=== PATIENT | male | born 1970 | race Caucasian/White ===

== ENCOUNTER 2020-01-30 08:19 | Emergency (ER) | payer OTHER, SELFPAY ==
--- NOTE | ~2020-01-30 | XR_ITS ---
EXAMINATION: XR chest 1V portable INDICATION: Shortness of breath, COVID 19 exposure TECHNIQUE: Portable AP chest at 0850 hours COMPARISON: None available FINDINGS: There are minimal patchy bilateral airspace opacities. In addition, subtle nodular opacitie s are questioned in the left midlung zone and right upper lung zone. No pleural effusion or pneumotho rax is identified. The cardiomediastinal silhouette is normal. IMPRESSION: 1. Patchy bilateral airspace opacities and questionable nodules of the right upper and left midlung z ones. Findings could be infectious or inflammatory however, further evaluation with CT of the chest i s recommended. Reviewed, dictated and finalized at location A. IMPRESSION: 1. Patchy bilateral airspace opacities and questionable nodules of the right up per and left midlung zones. Findings could be infectious or inflammatory howeve r, further evaluation with CT of the chest is recommended.
[2020-01-30 08:23] VITALS: BP 140/85; PULSE 105; RESP 21; TEMP 37; O2SAT 96
[2020-01-30 08:26] VITALS: PULSE 105
--- NOTE | 2020-01-30 08:27 | ECG_ITS ---
Measurements Intervals [place] Rate: 97 P: 23 VA: 125 QRS: 34 QRSD: 106 T: 3 QT: 336 QTc: 428 Interpretive Statements SINUS RHYTHM BASELINE ARTIFACT- I, II, III, AVR, AVL, AVF NORMAL ECG Electronically Signed On 01-30-2020 9:03:02 CDT by Hola Pierre D.O.
[2020-01-30 08:28] VITALS: O2SAT 95
--- NOTE | 2020-01-30 08:33 | ED.SOB ---
HPI - SOB/Dyspnea General Chief Complaint: Shortness of Breath/Dyspnea Stated Complaint: covid exposure/sob Time Seen by Provider: 01/30/20 08:32 Source: patient Mode of arrival: ambulatory Limitations: no limitations History of Present Illness HPI Narrative: Patient is a 49-year-old male with a history of asthma who presents for evaluation of cough and shortness of breath. 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 Patient continues to have weight loss, fatigue, myalgias and has developed some cough and shortness of breath. He is also reporting chest pain over the center of his chest which has been present for a week. Patient has not noticed any worsening of his asthma or increased wheezing. Patient denies any current fever, chills. He has been able to tolerate some oral intake without vomiting. He denies abdominal pain or diarrhea. He reports he is having mild pain over his chest. Related Data Allergies Allergy/AdvReac Type Severity Reaction Status Date / Time No Known Allergies Allergy Verified 01/30/20 08:26 Review of Systems Review of Systems: Narrative: CONSTITUTIONAL: Reports subjective fever and chills, none currently EYES: Denies visual changes, redness, or discharge. ENT: Denies rhinorrhea, congestion, sore throat, or otalgia. CARDIOVASCULAR: Reports chest pain, denies palpitations RESPIRATORY: Reports cough and shortness of breath. GASTROINTESTINAL: Denies abdominal pain, nausea, vomiting, or diarrhea. GENITOURINARY: Denies dysuria or hematuria. SKIN: Denies rash or itching. MUSCULOSKELETAL: Denies back pain, reports joint pain and myalgias NEUROLOGIC: Denies headache, numbness, or weakness. PSYCHIATRIC: Denies anxiety or depression. 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 EYES: PERRLA and EOMI. ENT: Nares clear, no rhinorrhea or epistaxis. Mucous membranes moist. NECK: Supple. CHEST: No respiratory distress, breathing even and non labored HEART: Regular rate, sinus rhythm ABDOMEN:Non distended, non tender EXTREMITIES: Normal range of motion. No edema. SKIN: Warm, dry, no rash. NEURO:No focal deficits. Alert and oriented x3 Course Vital Signs Vital signs: Vital Signs Temperature 37.0 C 01/30/20 08:23 Pulse Rate 105 H 01/30/20 08:23 Respiratory Rate 21 H 01/30/20 08:23 Blood Pressure 140/85 01/30/20 08:23 Pulse Oximetry 96 01/30/20 08:23 Temperature 37.0 C 01/30/20 08:23 Pulse Rate 98 01/30/20 08:54 Respiratory Rate 17 01/30/20 08:54 Blood Pressure 115/87 01/30/20 08:54 Pulse Oximetry 96 01/30/20 08:54 MDM - SOB/Dyspnea MDM Narrative Medical decision making narrative: Pt presented for evaluation of shortness of breath in the setting of recently confirmed COVID diagnosis. Patient does not appear to be having an acute asthma exacerbation. Laboratory results are reassuring. No elevation in troponin. No pleuritic pain or hypoxemia to suggest PE. Advised patient continue supportive care with Tylenol, ibuprofen, will also prescribe Ventolin inhaler for the patient. I advised patient to continue MDI treatments and follow-up with his primary care physician. I explained that at this point we can also put him on azithromycin as perhaps we are treating an atypical pneumonia but otherwise COVID is a viral diagnosis and antibiotics do not typically have a role here. Patient advised to get an at home pulse
[2020-01-30 08:44] LABS: Basophils Percent Auto 0.2 % (0.2-1.2); Eosinophils Percent Auto 0.4 % (0-4.4); Hematocrit 47.6 % (42.0-52.0); Hemoglobin 15.6 g/dL (14.0-18.0); Immature Granulocyte Absolute 0.03 K/mm3 (0.00-0.031); Immature Granulocyte Percent A 0.6 % (0-0.5); Lymphocytes Absolute Auto 0.88 K/mm3 (0.9-3.2); Lymphocytes Percent Auto 16.7 % (18.3-44.2); Mean Corpuscular HGB Conc 32.8 g/dl (32-36); Mean Corpuscular Hemoglobin 26.7 pg (26-34); Mean Corpuscular Volume 81.4 fl (80-100); Mean Platelet Volume 10.9 fl (7.4-10.4); Monocytes Absolute Auto 0.5 K/mm3 (0.1-0.6); Monocytes Percent Auto 9.3 % (2.6-8.5); Neutrophils Absolute Auto 3.8 K/mm3 (1.3-6.7); Neutrophils Percent Auto 72.8 % (45.5-73.1); Platelet Count Result 172 k/mm3 (150-375); Red Blood Count 5.85 M/mm3 (4.6-6.20); Red Cell Distribution Width 16.7 % (11.5-14.5); White Blood Count 5.3 K/mm3 (4.5-10.0)
[2020-01-30 08:54] VITALS: BP 115/87; PULSE 98; RESP 17; O2SAT 96
[2020-01-30 08:55] LABS: Anion Gap 11 mmol/L (8-16); Blood Urea Nitrogen 14 mg/dL (9-20); Calcium 8.2 mg/dL (8.4-10.2); Carbon Dioxide 28 mmol/L (22-30); Chloride 97 mmol/L (98-107); Estimated CRCL calculation 70 ml/min; Estimated Glomerular Filt Rate 59; Glucose 136 mg/dL (75-110); Potassium 3.8 mmol/L (3.4-5.0); Sodium 136 mmol/L (137-145)
[2020-01-30 09:26] LABS: INR 1.1; Prothrombin Time 14.1 Seconds (11.1-14.7)
[2020-01-30 09:27] LABS: Partial Thromboplastin Time 30.3 SECONDS (22.3-36.8)
[2020-01-30 09:37] LABS: Troponin I < 0.012 ng/mL (0.000-0.034)
[2020-01-30 09:51] VITALS: BP 122/81; PULSE 97; RESP 13; O2SAT 98
== END 2020-01-30 10:04 | disposition home or self-care (01) ==
PROVIDERS: Emergency Provider Emergency Medicine; PCP Internal Medicine
DX: U07.1 COVID-19 (principal); R91.8 Other nonspecific abnormal finding of lung field
CPT/HCPCS: 36415; 71045; 80048; 84484; 85025; 85610; 85730; 93005; 99284

== ENCOUNTER 2022-01-27 10:25 | Emergency (ER) | payer OTHER, SELFPAY ==
--- NOTE | 2022-01-27 10:27 | ED.URI ---
HPI - URI/Sore Throat General Chief Complaint: Upper Respiratory Infection Stated Complaint: upper respiratory Time Seen by Provider: 01/27/22 10:27 Source: patient Mode of arrival: ambulatory Limitations: no limitations History of Present Illness HPI Narrative: Mr. Lanza is a 51-year-old male patient presenting to the clinic today with complaints of cough and chest congestion x10 days. He reports that this started up as her upper respiratory infection has gone down to his chest. He has a history of asthma and feels as though he is wheezing and having an asthma attack. He denies any shortness of breath currently. He denies any fever or chills. States he has a productive cough with some white clear phlegm MD elicited complaint: sore throat and nasal congestion Related Data Home Medications Medication Instructions Recorded Confirmed amlodipine 10 mg tablet 10 mg PO DAILY 01/27/22 01/27/22 liothyronine 5 mcg tablet 5 mcg PO BID 01/27/22 01/27/22 tadalafil 5 mg tablet 5 mg PO DAILY 01/27/22 01/27/22 tamsulosin 0.4 mg capsule 0.4 mg PO DAILY 01/27/22 01/27/22 trazodone 150 mg tablet 150 mg PO HS 01/27/22 01/27/22 Allergies Allergy/AdvReac Type Severity Reaction Status Date / Time No Known Allergies Allergy Verified 01/27/22 10:38 Review of Systems Review of Systems: Pertinent positives per HPI. Patient denies any fever, chills, rash, headache, visual changes, dizziness, shortness of breath, chest pain, palpitations, nausea, vomiting, diarrhea, constipation, abdominal pain, or any urinary issues. 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 There is no relevant family history pertinent to the patient complaint. Exam Narrative: General: Well-developed, well nourished, in no apparent distress Head: Normocephalic, atraumatic Eyes: Pupils equally round and reactive to light bilaterally, EOM intact, sclera and conjunctive clear, no discharge, lids normal Ears: TMs intact and clear, ear canals clear, no drainage, grossly hearing normal. Nose: Nares patent, clear nasal discharge, no inflammation, no sinus tenderness. Mouth: Oral pharynx without lesions or masses, good dentition, MMM. Neck: Supple, trachea midline, no enlargement of anterior or posterior cervical nodes, no thyroid masses or goiter palpable. Cardio: Regular rate and rhythm, s1 and s2 normal, no murmur appreciated. Resp: Posterior expiratory wheezing, no rhonchi, rales, or rubs Course Course Emergency Course: Portions of this record may have been created with voice recognition software. Level of Care: Express Care Visit Vital Signs Vital signs: Vital signs reviewed MDM - URI/Sore Throat MDM Narrative Medical decision making narrative: At the time of visit patient is resting comfortably on the exam table. I suspect the patient has an asthma exacerbation. I will send in a course of prednisone and a Flovent inhaler for him. Supportive measures were discussed with the patient he voiced understanding of discharge instructions. Differential Diagnosis Differential diagnosis: Likely upper respiratory infection, otitis media, sinusitis, viral infection, bronchitis, influenza, pharyngitis and other (Asthma exacerbation) Discharge Plan Discharge Clinical Impression: Asthma exacerbation Qualifiers: Asthma severity: moderate Asthma persistence: persistent Qualified Code(s): J45.41 - Moderate persistent asthma with (acute) exacerbation Patient Disposition: Home, Self-Care Condition: Stable I
[2022-01-27 10:31] VITALS: BP 155/87; PULSE 84; RESP 14; TEMP 36.8; O2SAT 99
[2022-01-27 10:40] VITALS: BP 155/87; PULSE 84; RESP 14; TEMP 36.8; O2SAT 99
== END 2022-01-27 10:46 | disposition home or self-care (01) ==
LOC: EXPBETH 10:29
PROVIDERS: Emergency Provider Nurse Practitioner Family; PCP Internal Medicine
DX: J45.41 Moderate persistent asthma with (acute) exacerbation (principal)
CPT/HCPCS: 99213; G0463

== ENCOUNTER 2023-02-14 18:26 | Emergency (ER) | payer OTHER, SELFPAY ==
--- NOTE | 2023-02-14 18:31 | ED.URI ---
HPI - URI/Sore Throat General Chief Complaint: Upper Respiratory Infection Stated Complaint: Congestion,Cough Time Seen by Provider: 02/14/23 18:35 Source: patient and RN notes reviewed Mode of arrival: ambulatory Limitations: no limitations History of Present Illness HPI Narrative: 52-year-old male with history of asthma presents with concern for chest congestion, cough, shortness of breath with exertion. He denies nasal congestion, rhinorrhea, sore throat, fever, aches, chills, sweats. Reports cough is dry. Reports he had taken [id number] cough medicine without relief. He last used his inhaler an hour ago, he has been using it about 3 to 4 times a day MD elicited complaint: cough Related Data Home Medications Medication Instructions Recorded Confirmed amlodipine 10 mg tablet 10 mg PO DAILY 01/27/22 02/14/23 liothyronine 5 mcg tablet 5 mcg PO BID 01/27/22 02/14/23 tadalafil 5 mg tablet 5 mg PO DAILY 01/27/22 02/14/23 tamsulosin 0.4 mg capsule 0.4 mg PO DAILY 01/27/22 02/14/23 trazodone 150 mg tablet 150 mg PO HS 01/27/22 02/14/23 omeprazole 40 mg capsule,delayed 40 mg PO DAILY 02/14/23 02/14/23 release Allergies Allergy/AdvReac Type Severity Reaction Status Date / Time No Known Allergies Allergy Verified 02/14/23 18:29 Review of Systems Review of Systems: CONSTITUTIONAL: Denies malaise, chills, sweats, or fever. EYES: Denies visual changes, redness, or discharge. ENT: Denies rhinorrhea, congestion, sinus pain, otalgia and sore throat. CARDIOVASCULAR: Denies chest pain, palpitations, or edema. RESPIRATORY: Reports cough, exertional dyspnea. GASTROINTESTINAL: Denies abdominal pain, nausea, vomiting, diarrhea SKIN: Denies rash or itching. MUSCULOSKELETAL: Denies myalgia. NEUROLOGIC: Denies headache. 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 There is no relevant family history pertinent to the presenting complaint Exam Narrative: GENERAL: Well-appearing, well-nourished, and in no acute distress. HEAD: Normocephalic EYES: PERRLA, conjunctivae clear ENT: Nares clear. Mucous membranes moist. TM pearly chavez with sharp light reflex bilaterally; no tragal tenderness. Oropharynx not erythematous without lesions. Tonsils not enlarged and without exudate, no drooling, no hoarseness, no trismus, uvula midline. NECK: Supple. No lymphadenopathy CHEST: Expiratory wheeze throughout, otherwise clear to auscultation, breath sounds equal. No rhonchi, rales, or stridor. No respiratory distress, speaks in full sentences. HEART: Regular rate and rhythm. No murmur heard. SKIN: Warm, dry, no rash. NEURO: Alert and oriented x3. PSYCH: Normal mood and affect Course Course Emergency Course: Patient is aware of diagnosis, understands and agrees to treatment plan. Anticipatory guidance given. Patient agrees to follow-up as directed and is aware of reasons to seek care at the emergency department. Portions of this record may have been created with voice recognition software Level of Care: Express Care Visit Vital Signs Vital signs: Reviewed. MDM - URI/Sore Throat MDM Narrative Medical decision making narrative: Differential diagnosis considered: Howe virus, strep pharyngitis, allergic rhinitis, upper respiratory tract infection, sinusitis, rhinosinusitis, nasopharyngitis. viral pharyngitis, otitis media, otitis externa, pneumonia, bronchitis, viral cough syndrome, viral syndrome,
[2023-02-14 18:35] VITALS: BP 149/94; PULSE 96; RESP 16; TEMP 36.9; O2SAT 98
== END 2023-02-14 18:44 | disposition home or self-care (01) ==
PROVIDERS: Emergency Provider Nurse Practitioner
DX: J45.901 Unspecified asthma with (acute) exacerbation (principal)
CPT/HCPCS: 99213; G0463